=== PATIENT | male | born 2000 | race Caucasian/White ===

== ENCOUNTER 2024-04-21 14:20 | Emergency (ER) | payer BC, SELFPAY ==
--- OUTSIDE RECORDS SUMMARY | 2024-04-21 14:22 | XMS_ITS | Encounter Summary ---
Author Organization [facility] Address [address] Attn: Epic Prelude ADT [facility] [place] [address] Care Team Providers Care Grounds Maintenance Supervisor Name Role Phone Kathy Peña MD Primary Care Provider [phone] Encounter Details Date Type Department Care Team (Late st Contact Info) Description 2002 Inpatient Historical Hartly, Melvin Burton MD [address] [facility] [id number] [place] [address] Mirela Echavarria MD [address] [facility] [address] [place], [place] [id number] SINGL BORN IN HOSP-W C/DELIVERY (Primary Dx) Social History Tobacco Use Types Packs/Day Years Used Date Smoking Tobacco: Never Assessed Sex and Gender Information Value Date Recorded Sex Assigned at Not on file 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
--- OUTSIDE RECORDS SUMMARY | 2024-04-21 14:22 | XMS_ITS | Encounter Summary ---
Author Organization [facility] Address [address] [place] [address] Care Team Providers Care Triple Valve Tester Name Role Phone Kathy Peña MD Primary Care Provider Encounter Details Date Type Department Care Team (Late st Contact Info) Description 2002 Outpatient Historical [facility] [address] [facility] [address] [address] Melvin Mendoza MD [address] [facility] [id number] [place] [address] Social History Tobacco Use Types Packs/Day Years Used Date Smoking Tobacco: Never Assessed Sex and Gender Information Value Date Recorded Sex Assigned at Not on file Legal Sex Male 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
--- OUTSIDE RECORDS SUMMARY | 2024-04-21 14:22 | XMS_ITS | Encounter Summary ---
Author Organization [facility] Address 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
--- OUTSIDE RECORDS SUMMARY | 2024-04-21 14:22 | XMS_ITS | Encounter Summary ---
Author Organization [facility] Address [address] [place] [address] Care Team Providers Care Spanish Literature Professor Name Role Phone Kathy Peña MD Primary Care Provider [phone] Encounter Details Date Type Department Care Team (Late st Contact Info) Description 2002 Outpatient Historical [facility] [address] [facility] [address] [place] [address] Laura Gomez AU.D [address] [place] [address] Social History Tobacco Use Types Packs/Day Years Used Date Smoking Tobacco: Never Assessed Sex and Gender Information Value Date Recorded Sex Assigned at Not on file 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
--- OUTSIDE RECORDS SUMMARY | 2024-04-21 14:22 | XMS_ITS | Encounter Summary ---
Author Organization [facility] Address [address] [place] [address] Care Team Providers Care Hat And Cap Parts Cutter Hand Name Role Phone Kathy Peña MD Primary Care Provider [phone] Encounter Details Date Type Department Care Team (Late st Contact Info) Description 2002 Outpatient Historical [facility] [address] [facility] [address] [phone] Thea Machado MD NO ADDRESS ON FILE Social History Tobacco Use Types Packs/Day Years Used Date Smoking Tobacco: Never Assessed Sex and Gender Information Value Date Recorded Sex Assigned at Not on file 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
--- OUTSIDE RECORDS SUMMARY | 2024-04-21 14:22 | XMS_ITS | Continuity of Care Document ---
Author Organization [facility] Address [address] [place] [address] Phone Care Team Providers Care Mine Motor Operator Name Role Phone Cary AVILES R Unavailable Unavailable Procedures Procedure Date X-ray exam foot, minimum 3 views 2012 Office/outpatient visit,daron navarro 2012 Unna Boot Application Surgical Boot/ Shoe, Each Advance Directives Directive Yes / No Effective Date File Name Resuscitation Not Answered N/A N/A Life Support Not Answered N/A N/A Intubation Not Answered N/A N/A Antibiotics Not Answered N/A N/A IV Fluid Support Not Answered N/A N/A Tube Feed Not Answered N/A N/A Other Directive N/A N/A WARNING:The information contained in this section is historical and is provided for information only and does not constitute a legal document or any assurance that the information is still accurate. Please verify the information with the he of the legal document before using it for clinical purposes. Encounters Encounter Description Practice Location Reason(s) For Visit Diagnoses Date Provider Providers Copied on Encounter Office/outpat ient visit,daron navarro [facility], [address] [place], [place] [address] [place], [place], [id number], [place] tel:[phone] [facility] PAIN IN [place] OF [place] NOSE[place]IN IN [place] [address] Kat [address] [place] [address], [address], [place], [place], [id number] , [place]. tel:[phone] Family History Family Member Type Diagnosis Age At Onset No Information Payers Payer name Insurance type Covered green party ID Authoriza tisilvestre(s) No Information Social History Type Description Quantity Date Captured Comments Alcohol Use Details Unknown Caffeine Use Details Unknown Tobacco Use Status No Information Smoking Status No Information Sex Male Chief Complaint And Reason For Visit No Information Reason For Referral Reason For Referral No Information Plan Of Treatment Date Type Action Status Referral Ordered: X-ray exam foot, minimum 3 views RT ordered History Of Present Illness Encounter Date Complaint History Of Prese nt Illness No Information Functional Status Date Functional Assessmen t No Information Instructions Date Instruction Additional Infor mation No Information Assessments Type Assessment Date No Information Patient Care Teams Name Effective Dates (start - stop) Status Members No Information
--- OUTSIDE RECORDS SUMMARY | 2024-04-21 14:22 | XMS_ITS | Clinical Summary ---
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
--- OUTSIDE RECORDS SUMMARY | 2024-04-21 14:27 | XMS_ITS | Continuity of Care Document ---
Author Organization [facility] Address [address] [place] [address] Phone Care Team Providers Care Web Systems Developer Name Role Phone Cary AVILES R Unavailable [...] Encounter Office/outpat ient visit,daron navarro [facility], [address] [place], [place] [address] [place], [place], [id number], [place] tel:[phone] [facility] PAIN IN [place] OF FOOT NOSEdemaPAIN IN [place] [address] Kat [address] [place] [address], [address], [place], [place], [id number] , [place]. tel:[phone] Family History Family Member Type Diagnosis Age At Onset No Information Payers Payer name Insurance type Covered democrat ID Authoriza tisilvestre(s) No Information Social History [...]
[2024-04-21 16:33] VITALS: BP 144/79; PULSE 102; RESP 18; TEMP 37; O2SAT 100
[2024-04-21 16:51] LABS: EDCOVIDSCREEN Negative (Negative); EDINFLUASCREEN Negative (Negative); EDINFLUBSCREEN Positive (Negative)
--- NOTE | 2024-04-21 17:04 | ED.GENADULT ---
HPI - General Adult General Chief complaint: Upper Respiratory Infection Stated complaint: fever and cough Time Seen by Provider: 04/21/24 16:40 Source: patient Mode of arrival: ambulatory Limitations: no limitations History of Present Illness HPI narrative: Poli is a 24 year old male here today with a 1 day history of cough, congestion, fever, body aches, tiredness, runny nose, and headaches. He took Tylenol earlier today with some relief. Reports Dad has been sick at home with similar symptoms. He reports a history of asthma. Denies any wheezing or recent albuterol use. Denies any SOB or trouble breathing. Denies any nausea, vomiting, or diarrhea. Reports he has one kidney. He is unaccompanied today. All other systems reviewed and negative except as noted in HPI and ROS. Related Data Home Medications ?Medication ?Instructions ?Recorded ?Confirmed ?Last Taken ?Type cetirizine 10 mg capsule (Zyrtec) 10 mg PO DAILY PRN 04/18/23 04/18/23 Unknown History melatonin 5 mg capsule mg PO 04/18/23 04/18/23 Unknown History Allergies Allergy/AdvReac Type Severity Reaction Status Date / Time No Known Allergies Allergy Verified 04/21/24 16:32 Review of Systems Review of Systems: CONSTITUTIONAL: Reports fever and body aches. Denies sweats. +tiredness EYES: Denies visual changes, redness, or discharge. ENT: Reports congestion and runny nose. Denies sore throat or otalgia. CARDIOVASCULAR: Denies chest pain, palpitations, or edema. RESPIRATORY: Reports cough. Denies dyspnea. +history of asthma. Denies wheezing. GASTROINTESTINAL: Denies abdominal pain, vomiting, or diarrhea. GENITOURINARY: Denies dysuria or hematuria. SKIN: Denies rash or itching. MUSCULOSKELETAL: Denies back pain, joint pain, or myalgia. NEUROLOGIC: Denies numbness or weakness. Reports headache. PSYCHIATRIC: Denies anxiety or depression. All other systems reviewed are negative, except as documented in HPI. [facility] Past Medical History Medical History (Updated 04/22/24 @ 00:01 by Sophie Pereira) Allergic rhinitis Wrist fracture, right Asthma Surgical History Surgical History Hx of tonsillectomy Family History Family History Mother Asthma Social History Social History Smoking status: Never smoker Alcohol intake: never Gender identity (if verbalized by the patient): Male Comments At time of signature, I have reviewed and agree with nursing past medical, surgical, social and family history unless otherwise noted. Please see nursing chart for further information. There is no relevant family history pertinent to the presenting complaint. Exam Narrative: GENERAL: This is a well-nourished, well-developed patient, in no apparent distress. He appears acutely ill. HEAD: normocephalic, atraumatic. EYES: Sclera clear/white. Vision is grossly intact. EARS: External ears normal, auditory canals clear and without drainage, TMs erythematous without perforation or fluid. Hearing grossly intact. NOSE: External nose normal, nares with redness, edema, and rhinorrhea. THROAT: Mucous membranes moist, posterior pharynx erythematous with no exudate or enlarged tonsils noted. NECK: Neck supple, non-tender without lymphadenopathy. CARDIOVASCULAR: Regular rhythm without murmurs, gallops, or rubs. RESPIRATORY: Clear to auscultation. Breath sounds equal bilaterally. No wheezes, rales, or rhonchi. SKIN: warm, Dry, intact with no suspicious lesions or rash, good texture and turgor. NEURO: awake, alert, and oriented to person, place and time. There were no obvious focal neurologic abnormalities. EXTREMITIES: No joint tenderness, effusion, or edema noted. Course Course Emergency Course: Patient is aware of diagnosis, understands and agrees to treatment plan. Anticipatory guidance was given. Patient agrees to follow-up as directed and is aware of reasons to seek care at the emergency department. Please be advised this is a medical document. It is intended for [id number] communication. It is written in medical language and may contain unfamiliar abbreviations or verbiage. Medical documents are intended to carry relevant information, facts as evident, and the clinical opinion of the practitioner at the time of the encounter. This report may have been done utilizing a voice recognition system. Attempts have been made to correct errors. However, there may be uncorrected grammatical, spelling, and recognition errors present. The file time of this note does not necessarily represent the time the patient was seen. Level of Care: Express Care Visit Vital Signs Vital signs: Vital Signs Temperature 37.0 C 04/21/24 16:33 Pulse Rate 102 H 04/21/24 16:33 Respiratory Rate 18 04/21/24 16:33 Blood Pressure 144/79 H 04/21/24 16:33 Pulse Oximetry 100 04/21/24 16:33 Oxygen Delivery Room Air 04/21/24 16:33 Temperature 37.0 C 04/21/24 16:33 Pulse Rate 102 H 04/21/24 16:33 Respiratory Rate 18 04/21/24 16:33 Blood Pressure 144/79 H 04/21/24 16:33 Pulse Oximetry 100 04/21/24 16:33 Oxygen Delivery Room Air 04/21/24 16:33 reviewed. Medical Decision Making MDM Narrative Medical decision making narrative: Results of flu test reviewed with patient. Patient was positive for Flu B, and negative for Flu A and COVID. Discussed physical exam findings with patient and reviewed prescriptions. Advised supportive measures and reviewed signs and symptoms for patient to return to clinic or go to the ER. Patient verbalized understanding. Differential Diagnosis Differential Diagnosis: Flu vs COVID vs other URI Vital Signs Vital Signs: Vital Signs Temperature 37.0 C 04/21/24 16:33 Pulse Rate 102 H 04/21/24 16:33 Respiratory Rate 18 04/21/24 16:33 Blood Pressure 144/79 H 04/21/24 16:33 Pulse Oximetry 100 04/21/24 16:33 Oxygen Delivery Room Air 04/21/24 16:33 Temperature 37.0 C 04/21/24 16:33 Pulse Rate 102 H 04/21/24 16:33 Respiratory Rate 18 04/21/24 16:33 Blood Pressure 144/79 H 04/21/24 16:33 Pulse Oximetry 100 04/21/24 16:33 Oxygen Delivery Room Air 04/21/24 16:33 Lab Data Labs: Lab Results 04/21/24 Range/Units 16:47 POC Influenza A Ag Negative (Negative) POC Influenza B Ag Positive (Negative) POC SARS CoV-2 Ag Negative (Negative) reviewed. Discharge Plan Discharge Clinical Impression: Influenza B Patient Disposition: Home, Self-Care Condition: Stable Instructions: Antibiotic Form, Influenza (ED) Additional Instructions: You were diagnosed today with influenza B. Cover all coughs. Push fluids and eat foods that contain fluid such as applesauce. Rest. Wear a mask when leaving the house until you are fever free for 24 hours. Avoid going places where you may come in contact with people who are immunocompromised. Do not share eating or drinking utensils. Use good handwashing techniques. You may use [id number] Tylenol and/or ibuprofen by mouth as needed as directed on packaging for pain and fever. Read packing of all over the counter medications and take them only as recommended on the label. Take medications as prescribed. Follow printed instructions provided. Follow-up with primary care provider. Have blood pressure checked when you follow up with PCP as your blood pressure was elevated today at 144/79. Go to the ER for any worsening symptoms or concerns. Patient Language: Upper Sorbian Prescriptions: New oseltamivir [Tamiflu] 75 mg capsule 75 mg PO Q12H 5 Days Qty: 10 0RF benzonatate 200 mg capsule 200 mg PO TID PRN (Reason: cough) Qty: 30 0RF No Action melatonin 5 mg capsule PO Zyrtec 10 mg capsule 10 mg PO DAILY PRN albuterol sulfate 90 mcg/actuation HFA aerosol inhaler 1 inh inhalation Q4H PRN (Reason: shortness of breath or wheezing) Qty: 8.5 1RF Follow-up/Referrals: PHYSICIAN,FIREBRICK AND REFRACTORY TILE REPAIRER [Primary Care Provider] - Stand Alone Forms: Work/School Release IP Time of Disposition: 17:08
== END 2024-04-21 17:12 | disposition home or self-care (01) ==
PROVIDERS: Emergency Provider Nurse Practitioner; Referring Provider Family Medicine
DX: J10.1 Influenza due to other identified influenza virus with other respiratory manifestations (principal); Z20.822 Contact with and (suspected) exposure to COVID-19; J45.909 Unspecified asthma, uncomplicated
CPT/HCPCS: 87426; 87804; 99213; G0463